=== PATIENT | male | born 1970 | race Caucasian/White ===

== ENCOUNTER 2017-08-18 21:31 | Emergency (ER) | payer MEDICAID, OTHER ==
[2017-08-18 22:40] VITALS: TEMP 98.9
--- NOTE | 2017-08-18 22:56 | C.PDOC ---
History Of Present Illness 47M c/o right knee pain after he twisted his knee in the shower and felt a "pop " several days ago. pain has been getting gradually worse. ibuprofen 1 pill today did not help. Time Seen by Provider: 08/18/17 22:55 Chief Complaint (Nursing): Lower Extremity Problem/Injury Past Medical History Vital Signs: Last Vital Signs Temp 98.9 F 08/18/17 22:35 Pulse 84 08/18/17 23:02 Resp 14 08/18/17 22:35 BP 180/126 H 08/18/17 23:02 Pulse Ox 96 08/19/17 00:11 - Medical History PMH: HTN Family History: States: Other Other Family History: nc - Social History Hx Alcohol Use: Yes Hx Substance Use: No - Immunization History Hx Tetanus Toxoid Vaccination: No Hx Influenza Vaccination: No Hx Pneumococcal Vaccination: No Review Of Systems Constitutional: Negative for: Fever, Chills Cardiovascular: Negative for: Chest Pain Respiratory: Negative for: Shortness of Breath Gastrointestinal: Negative for: Nausea, Vomiting Neurological: Negative for: Weakness, Numbness Physical Exam - Physical Exam Appears: Well, Non-toxic, No Acute Distress Skin: Warm, Dry Cardiovascular: Rhythm Regular Respiratory: No Accessory Muscle Use Extremity: Other (right knee- ttp anteriorly, mild edema, pain w rom, strength normal) Pulses: Right Dorsalis Pedis: Normal Neurological/Psych: Oriented x3, Normal Motor, Normal Sensation ED Course And Treatment O2 Sat by Pulse Oximetry: 96 Medical Decision Making Medical Decision Making: xr r knee- no acute fracture pt says he has been out of his losartan for a month, requests refill Disposition - Disposition Referrals: Gideon Randhawa III, MD [Staff Provider] - Disposition: HOME/ ROUTINE Disposition Time: 00:11 Condition: STABLE Additional Instructions: Please follow up with the orthopedic surgeon. Return to the ER for any worsening symptoms or for any other concerns. Prescriptions: Hydrocodone/Acetaminophen [[place] 325 mg-5 mg] 1 tab PO Q6H PRN #8 tab PRN Reason: Pain, Severe (8-10) Losartan [Cozaar] 100 mg PO DAILY #30 tab Naproxen [Naprosyn] 500 mg PO Q12H PRN #10 tablet PRN Reason: Pain, Moderate (4-7) Instructions: Knee Pain (ED) Forms: Gen Discharge Inst Faroese, [facility] (Faroese) Print Language: ANGUILLAN - Clinical Impression Clinical Impression: Knee injury
[2017-08-19 00:28] VITALS: BP 189/98; PULSE 89; RESP 18; O2SAT 100
--- NOTE | 2017-08-19 10:13 | RAD ---
PROCEDURE: Right Knee Radiographs. HISTORY: pain swelling COMPARISON: None. FINDINGS: BONES: Normal. No fracture. JOINTS: Normal. No osteoarthritis. JOINT EFFUSION: None. OTHER FINDINGS: None. IMPRESSION: Normal radiographs of the right knee.
== END 2017-08-19 00:28 | disposition home or self-care (01) ==
LOC: C.ER 21:31
DX: S89.91XA Unspecified injury of right lower leg, initial encounter (principal); X50.1XXA Overexertion from prolonged static or awkward postures, initial encounter; Y93.E1 Activity, personal bathing and showering; Y92.002 Bathroom of unspecified non-institutional (private) residence as the place of occurrence of the external cause
CPT/HCPCS: 73562; 96372; 99284; J1885

== ENCOUNTER 2017-08-23 22:02 | Emergency (ER) | payer OTHER ==
[2017-08-23 22:35] VITALS: BP 180/112; PULSE 77; RESP 18; TEMP 98.2; O2SAT 99
--- NOTE | 2017-08-23 22:45 | C.PDOC ---
History Of Present Illness 47 year old male presents to the ER with a complaint of right knee pain for over a week after he twisted it and heard a "pop". Patient seen in ED 08/18/17 for the same complaint and given Rx Hydrocodone/Acetaminophen, Cozaar, and Naprosyn; x-rays were taken which were negative. He reports he took all the medications they gave him but notes it still hurts, now he states it has gotten swollen and "a little red". Denies new injury or fever. Time Seen by Provider: 08/23/17 22:43 Chief Complaint (Nursing): Lower Extremity Problem/Injury History Per: Patient History/Exam Limitations: no limitations Onset/Duration Of Symptoms: Days Current Symptoms Are (Timing): Still Present Recent travel outside of the [place]: No - Knee Description Of Injury: Twisted Past Medical History Reviewed: Historical Data, Nursing Documentation, Vital Signs Vital Signs: Last Vital Signs Temp 98.2 F 08/23/17 22:32 Pulse 77 08/23/17 22:32 Resp 18 08/23/17 22:32 BP 180/112 H 08/23/17 22:32 Pulse Ox 99 08/24/17 00:55 - Medical History PMH: HTN Family History: States: Unknown Family Hx - Social History Hx Alcohol Use: Yes Hx Substance Use: No - Immunization History Hx Tetanus Toxoid Vaccination: No Hx Influenza Vaccination: No Hx Pneumococcal Vaccination: No Review Of Systems Constitutional: Negative for: Fever, Chills Cardiovascular: Negative for: Palpitations Respiratory: Negative for: Shortness of Breath Musculoskeletal: Positive for: Leg Pain Neurological: Negative for: Weakness, Numbness Physical Exam - Physical Exam Appears: Non-toxic, No Acute Distress, Other (uncomfortable in pain) Skin: Warm, Dry Head: Atraumatic, Normacephalic Eye(s): bilateral: Normal Inspection, EOMI Neck: Normal ROM Chest: Symmetrical Extremity: No Calf Tenderness, Capillary Refill (<2 seconds), No Deformity, Other (Swelling and tenderness to right anterior knee with tactile warmth and minimal erythema, flexion of the knee causes pain.) Pulses: Left Dorsalis Pedis: Normal, Right Dorsalis Pedis: Normal Neurological/Psych: Oriented x3, Normal Speech, Normal Motor, Normal Sensation, Other (No focal deficits) ED Course And Treatment - Laboratory Results Result Diagrams: 08/23/17 23:23 08/23/17 23:23 Lab Interpretation: Normal O2 Sat by Pulse Oximetry: 99 (Room air) Pulse Ox Interpretation: Normal Medical Decision Making Medical Decision Making: Impression: Knee pain. patient reports history of gout Plan: * Blood work * IV fluids * Toradol Progress: Labs reviewed -no leukocytosis. normal uric acid level. mildly elevated ESR Patient reevaluated and reports feeling better, his knee pain has improved. He has no fever and there are no clinical signs of septic arthritis. Advise patient to continue taking NSAIDs and will prescribe colchicine to take. Patient stable for discharge and given follow up instructions Disposition Counseled Patient/Family Regarding: Diagnosis, Need For Followup, Rx Given - Disposition Referrals: Mina Bellamy MD [Primary Care Provider] - Disposition: HOME/ ROUTINE Disposition Time: 00:19 Condition: IMPROVED Additional Instructions: Take colchicine 1.2 mg once followed by 0.6 mg every hour if pain continues, up to total of 6 doses Take Naproxen for pain Follow up in the clinic for further evaluation Return to the emergency department at any time if symptoms persist or worsen. Prescriptions: Colchicine [Mitigare] 0.6 mg PO Q6 #8 capsule Instructions: Gout (ED) Forms: [employer] [facility] (Liberian) - POA Present On Arrival: None - Clinical Impression Clinical Impression: Knee pain, right, Gout - PA / STAFFING CLERK / Resident Statement MD/DO has reviewed & agrees with the documentation as recorded. - Scribe Statement The provider has reviewed the documentation as recorded by the Scriblynette Avalos All medical record entries made by the Scribe were at my direction and personally dictated by me. I have reviewed the chart and agree that the record accurately reflects my personal performance of the history, physical exam, medical decision making, and the department course for this patient. I have also personally directed, reviewed, and agree with the discharge instructions and disposition.
[2017-08-23] MEDS ORDERED: Sodium Chloride 0.9% 1,000 ML IV ONE (22:56)
[2017-08-23] MEDS ORDERED: Sodium Chloride 0.9% 1,000 ML ONE (23:06)
[2017-08-23 23:26] LABS: BASO % 0.5 % (0.0-2.0); EOS # 0.3 K/uL (0.0-0.7); EOS % 3.2 % (0.0-4.0); HEMOGLOBIN 14.4 g/dL (12.0-18.0); LYMPH # 2.6 K/uL (1.0-4.3); LYMPH % 33.2 % (20.0-40.0); MEAN CELL VOLUME 82.7 fL (80.0-94.0); MEAN CORPUSCULAR HEMOGLOBIN 28.6 pg (27.0-31.0); MEAN CORPUSCULAR HGB CONC 34.6 g/dL (33.0-37.0); MEAN PLATELET VOLUME 8.3 fL (7.2-11.7); MONO # 0.9 K/uL (0.0-0.8); MONO % 11.9 % (0.0-10.0); NEUT # 4.1 K/uL (1.8-7.0); NEUT % 51.2 % (50.0-75.0); RBC 5.05 Mil/uL (4.40-5.90); RED CELL DISTRIBUTION WIDTH 13.2 % (11.5-14.5); WHITE BLOOD COUNT 7.9 K/uL (4.8-10.8)
[2017-08-23 23:37] LABS: CALCIUM 9.1 mg/dl (8.6-10.4); GFR AFRICAN-AMERICAN > 60; GFR NON-AFRICAN AMERICAN > 60
[2017-08-23 23:48] LABS: ALB/GLOB RATIO 1.1 (1.0-2.1); ALBUMIN 4.1 g/dL (3.5-5.0); ALT/SGPT 39 U/L (21-72); AST/SGOT 51 U/L (17-59); BLOOD UREA NITROGEN 15 mg/dL (9-20); URIC ACID 5.9 mg/dL (3.5-8.5)
== END 2017-08-24 00:51 | disposition home or self-care (01) ==
LOC: SUPCPDRO 22:02 → C.ER 22:02
DX: M10.9 Gout, unspecified (principal); M25.561 Pain in right knee; I10 Essential (primary) hypertension
CPT/HCPCS: 80053; 84550; 85025; 85651; 96361; 96374; 99284; J1885; J7040

== ENCOUNTER 2017-09-03 19:20 | Emergency (ER) | payer OTHER ==
[2017-09-03 20:04] VITALS: RESP 18
[2017-09-03] MEDS ORDERED: Dexamethasone 4 mg/1 ml IM STA (20:23)
--- NOTE | 2017-09-03 20:39 | C.PDOC ---
History Of Present Illness 47 year old male with chronic right knee pain presents to the ED for evaluation of right knee swelling and pain. Patient was seen in the ED twice before for the same complaints previously diagnosed with gout on 08/23/17 and d/c with medication that he reports is taking with no relief. Patient states he has no PMD and has not followed up for further evaluation. Patient denies fever, chills , nausea, vomit, weakness, numbness or recent trauma. Time Seen by Provider: 09/03/17 19:49 Chief Complaint (Nursing): Lower Extremity Problem/Injury History Per: Patient History/Exam Limitations: no limitations Onset/Duration Of Symptoms: Persistent Current Symptoms Are (Timing): Still Present Recent travel outside of the [place]: No Additional History Per: Patient - Knee Description Of Injury: Other Currently Unable To: Bend Or Move Alleviating Factor(s): Ice Therapy, OTC Pain Medication Past Medical History Reviewed: Historical Data, Nursing Documentation, Vital Signs Vital Signs: Last Vital Signs Temp 98.4 F 09/03/17 21:29 Pulse 99 H 09/03/17 21:29 Resp 18 09/03/17 21:29 BP 167/100 H 09/03/17 21:29 Pulse Ox 99 09/03/17 21:29 - Medical History PMH: HTN Surgical History: No Surg Hx Family History: States: Unknown Family Hx - Social History Hx Alcohol Use: Yes Hx Substance Use: No - Immunization History Hx Tetanus Toxoid Vaccination: No Hx Influenza Vaccination: No Hx Pneumococcal Vaccination: No Review Of Systems Constitutional: Negative for: Fever, Chills Cardiovascular: Negative for: Chest Pain Respiratory: Negative for: Cough, Shortness of Breath Gastrointestinal: Negative for: Nausea, Vomiting, Abdominal Pain Musculoskeletal: Positive for: Leg Pain Skin: Negative for: Rash Neurological: Negative for: Weakness, Numbness Physical Exam - Physical Exam Appears: Non-toxic, No Acute Distress Skin: Normal Color, Warm, Dry Head: Atraumatic, Normacephalic Eye(s): bilateral: Normal Inspection Nose: No Discharge, No Deformity Extremity: Normal ROM, Tenderness (right knee), No Calf Tenderness, Capillary Refill (< 2 seconds), Swelling (right knee), No Other (No erythema to right knee , no warmth, no effusion) Pulses: Left Dorsalis Pedis: Normal, Right Dorsalis Pedis: Normal Neurological/Psych: Oriented x3, Normal Speech, Normal Cognition Gait: Steady ED Course And Treatment O2 Sat by Pulse Oximetry: 96 (On RA) Pulse Ox Interpretation: Normal Progress Note: Plan: -Decadron 10 mg IM. 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 Knee brace applied and pt advised to follwo up in clinic in 2 days. Follow up instructions and return precautions discussed with patient who expressed understanding and agreed with treatment plan Reevaluation Time: 21:18 Reassessment Condition: Improved Disposition - Disposition Referrals: [facility] [Outside] Disposition: HOME/ ROUTINE Disposition Time: 21:18 Condition: STABLE Additional Instructions: Please follow up in clinic Leg elevation Continue naproxen Take prednisone as directed Return to ER if worse Prescriptions: predniSONE [Prednisone] 20 mg PO DAILY #10 tab Instructions: Gout (ED) Forms: [employer] [facility] (Danish) - Clinical Impression Clinical Impression: Gouty arthritis - PA / ASSISTANT TO THE PRESIDENT / Resident Statement MD/DO has reviewed & agrees with the documentation as recorded. - Scribe Statement The provider has reviewed the documentation as recorded by the Scribe Richard Swanson All medical record entries made by the Scribe were at my direction and personally dictated by me. I have reviewed the chart and agree that the record accurately reflects my personal performance of the history, physical exam, medical decision making, and the department course for this patient. I have also personally directed, reviewed, and agree with the discharge instructions and disposition.
[2017-09-03] MEDS ORDERED: Dexamethasone 4 mg/1 ml ONE (20:41)
[2017-09-03 21:29] VITALS: BP 167/100; PULSE 99; TEMP 98.4
[2017-09-04 01:24] VITALS: O2SAT 96
== END 2017-09-03 21:39 | disposition home or self-care (01) ==
LOC: C.ER 19:20
DX: M10.9 Gout, unspecified (principal)
CPT/HCPCS: 96372; 99285; J1100

== ENCOUNTER 2018-01-13 11:32 | Emergency (ER) | payer OTHER ==
[2018-01-13 11:32] VITALS: BMI 33.3
[2018-01-13 11:37] VITALS: BP 185/112; PULSE 90; RESP 17; TEMP 98.9; O2SAT 99
--- NOTE | 2018-01-13 11:48 | C.PDOC ---
Time Seen by Provider: 01/13/18 11:40 Chief Complaint (Nursing): Lower Extremity Problem/Injury Past Medical History Vital Signs: Last Vital Signs Temp 98.9 F 01/13/18 11:35 Pulse 90 01/13/18 11:35 Resp 17 01/13/18 11:35 BP 185/112 H 01/13/18 11:35 Pulse Ox 99 01/13/18 11:35 - Medical History PMH: HTN Family History: States: Unknown Family Hx - Social History Hx Alcohol Use: Yes Hx Substance Use: No - Immunization History Hx Tetanus Toxoid Vaccination: No Hx Influenza Vaccination: No Hx Pneumococcal Vaccination: No ED Course And Treatment O2 Sat by Pulse Oximetry: 99 Disposition Counseled Patient/Family Regarding: Diagnosis, Need For Followup, Rx Given - Disposition Referrals: [facility] [Outside] [facility] [Outside] Disposition: HOME/ ROUTINE Disposition Time: 11:45 Condition: IMPROVED Prescriptions: Colchicine [Mitigare] 0.6 mg PO Q6 #8 capsule Indomethacin [Indocin] 50 mg PO TID #9 cap Losartan [Cozaar] 100 mg PO DAILY #15 tab predniSONE [Prednisone] 60 mg PO DAILY #12 tab Instructions: Gout (DC), Cellulitis (Skin Infection), Adult (DC) Forms: [facility] (Swiss), Work Excuse - Clinical Impression Clinical Impression: Gout attack, Hypertension
--- NOTE | 2018-01-13 11:49 | C.PDOC ---
History Of Present Illness 47 year old male presents to the emergency department with complaints of recurring gout symptoms for the past three days on his right foot. Patient complains of pain on the mid side of his right foot, and states the pain worsens with walking. Patient denies trauma, but reports some redness and swelling to the area. Patient states he normally experiences pain over the first toe joint. Patient states that he has Colchicine at home which he takes for period flare-ups, but he recently ran out and is not on any other gout medications. Additionally, patient reports that he ran out of his blood pressure medications two days ago. Time Seen by Provider: 01/13/18 11:40 Chief Complaint (Nursing): Lower Extremity Problem/Injury History Per: Patient Onset/Duration Of Symptoms: Days (3) Current Symptoms Are (Timing): Still Present - Ankle/Foot Description Of Injury: Other (goat symptoms) Currently Unable To: Bear Weight Past Medical History Reviewed: Historical Data, Nursing Documentation, Vital Signs Vital Signs: Last Vital Signs Temp 98.9 F 01/13/18 11:35 Pulse 90 01/13/18 11:35 Resp 17 01/13/18 11:35 BP 185/112 H 01/13/18 11:35 Pulse Ox 99 01/13/18 11:56 - Medical History PMH: HTN Surgical History: No Surg Hx Family History: States: No Known Family Hx - Social History Hx Alcohol Use: Yes Hx Substance Use: No - Immunization History Hx Tetanus Toxoid Vaccination: No Hx Influenza Vaccination: No Hx Pneumococcal Vaccination: No Review Of Systems Except As Marked, All Systems Reviewed And Found Negative. Musculoskeletal: Positive for: Foot Pain Skin: Positive for: Other (erythema and swelling to the right foot) Physical Exam - Physical Exam Appears: Non-toxic, In Acute Distress (mild) Skin: Other (blanching, erythema to the right foot on the dorsal lateral mid aspect) Head: Atraumatic, Normacephalic Eye(s): bilateral: Normal Inspection Nose: Normal Neck: Normal Chest: Symmetrical Cardiovascular: Rhythm Regular Respiratory: Normal Breath Sounds Extremity: Tenderness (to the dorsal lateral mid aspect of the foot, ), Swelling (localized, non-pitting) Extremity: Right: Atraumatic Neurological/Psych: Oriented x3, Normal Speech, Normal Cognition, Other (no focal deficits) Gait: Other (limited full-weight bearing due to pain) ED Course And Treatment O2 Sat by Pulse Oximetry: 99 (RA) Pulse Ox Interpretation: Normal Progress Note: Plan: Colocrys 1.2mg PO. Cozaar 100mg PO. Indocin 50mg PO. Prednisone 60mg PO Disposition Counseled Patient/Family Regarding: Diagnosis, Need For Followup, Rx Given - [facility]position [facility] [Outside] Disposition: HOME/ ROUTINE Disposition Time: 12:15 Condition: IMPROVED Prescriptions: Colchicine [Mitigare] 0.6 mg PO Q6 #8 capsule Indomethacin [Indocin] 50 mg PO TID #9 cap Losartan [Cozaar] 100 mg PO DAILY #15 tab predniSONE [Prednisone] 60 mg PO DAILY #12 tab Instructions: Gout (DC), Cellulitis (Skin Infection), Adult (DC) Forms: [employer] [facility] (Indian), Work Excuse - Clinical Impression Clinical Impression: Gout attack, Hypertension - Scribe Statement The provider has reviewed the documentation as recorded by the Scribe (Josue Escobar) Provider Attestation: All medical record entries made by the Scribe were at my direction and personally dictated by me. I have reviewed the chart and agree that the record accurately reflects my personal performance of the history, physical exam, medical decision making, and the department course for this patient. I have also personally directed, reviewed, and agree with the discharge instructions and disposition.
== END 2018-01-13 12:18 | disposition home or self-care (01) ==
LOC: C.ER 11:32
DX: M10.9 Gout, unspecified (principal); I10 Essential (primary) hypertension

== ENCOUNTER 2018-11-25 13:00 | Outpatient (CLI) | payer OTHER | END 2018-11-25 13:01 | disposition home or self-care (01) | LOC: C.CTH 13:00 | DX: R10.84 Generalized abdominal pain (principal) ==